=== PATIENT | female | born 1970 | race Two or more races ===

== ENCOUNTER 2025-01-24 06:00 | Day surgery (SDC) | payer OTHER ==
[2025-01-24] MEDS ORDERED: fentaNYL CITRATE 50 MCG/ML AMPUL IV PUSH ONE (14:00)
[2025-01-24] MEDS ORDERED: DIPHENHYDRAMINE HCL 50 MG/ML VIAL 1ML IV ONE ×2 (14:00)
[2025-01-24] MEDS ORDERED: MIDAZOLAM HCL 2 MG/2 ML VIAL IV ONE (14:00)
== END 2025-01-24 15:30 | disposition home or self-care (01) ==
LOC: AMB-ENDOS 06:00
PROVIDERS: ATTEND Internal Medicine
DX: D12.4 Benign neoplasm of descending colon (principal); D12.5 Benign neoplasm of sigmoid colon; K63.5 Polyp of colon; Z88.0 Allergy status to penicillin; K57.30 Diverticulosis of large intestine without perforation or abscess without bleeding; Z86.0101 Personal history of adenomatous and serrated colon polyps

== ENCOUNTER 2025-03-28 22:13 | Emergency (ER) | payer OTHER ==
[~2025-03-28] VITALS: Ht 170.2 cm; Wt 72.6 kg
[2025-03-29] MEDS ORDERED: LEXAPRO5 MG PO (00:07)
[2025-03-29] MEDS ORDERED: WELLBUTRIN SR100 MG PO (00:07)
[2025-03-29] MEDS ORDERED: DEPAKOTE ER250 MG (00:07)
[2025-03-29] MEDS ORDERED: AMBIEN5 MG PO (00:08)
[2025-03-29] MEDS ORDERED: CLONAZEPAM1 M1 PO (00:08)
[2025-03-29] MEDS ORDERED: BUTALB-ACETAMI1 EACH PO (01:40)
[2025-03-29] MEDS ORDERED: KETOROLAC TROMETHAMINE 60 MG VIAL IM ONE ×2 (01:45→01:59)
[2025-03-29] MEDS ORDERED: DEXAMETHASONE SODIUM PHOSPHATE 4 MG/ML VIAL IM ONE (01:45)
[2025-03-29] MEDS ORDERED: DIPHENHYDRAMINE HCL 50 MG/ML VIAL 1ML IM ONE (01:45)
[2025-03-29] MEDS ORDERED: ACETAMINOPHEN 500 MG GEL..CAP PO ONE ×2 (01:45→01:59)
[2025-03-29] MEDS ORDERED: DIPHENHYDRAMINE HCL 50 MG/ML VIAL 1ML ONE (01:59)
[2025-03-29] MEDS ORDERED: DEXAMETHASONE SODIUM PHOSPHATE 4 MG/ML VIAL ONE (02:00)
== END 2025-03-29 02:29 | disposition home or self-care (01) ==
LOC: ER 22:14
DX: G43.909 Migraine, unspecified, not intractable, without status migrainosus (principal); F31.89 Other bipolar disorder; Z91.041 Radiographic dye allergy status; Z88.0 Allergy status to penicillin